=== PATIENT | female | born 1990 | race Caucasian/White ===

== ENCOUNTER 2018-08-06 04:32 | Emergency (ER) | payer OTHER ==
[~2018-08-06] VITALS: Ht 160 cm; Wt 90.7 kg
--- NOTE | 2018-08-06 04:54 | PHYS DOC ---
KHUSHBOO SWANSON MD 08/06/18 0454: Adult General Chief Complaint Chief Complaint epigastric pain HPI HPI 28 years old female presented to the emergency department with a one-week history of epigastric pain radiating to the back and right upper quadrant associated with nausea and vomiting no diarrhea no urgency frequency and hematuria she describes her pain as a sharp constant pain feels like pressure rated 7 out of 10 nothing makes it worse or better Review of Systems Review of Systems Constitutional: Denies fever or chills [] Eyes: Denies change in visual acuity, redness, or eye pain [] HENT: Denies nasal congestion or sore throat [] Respiratory: Denies cough or shortness of breath [] Cardiovascular: No additional information not addressed in HPI [] : Denies dysuria or hematuria [] Musculoskeletal: Denies back pain or joint pain [] Integument: Denies rash or skin lesions [] Neurologic: Denies headache, focal weakness or sensory changes [] Endocrine: Denies polyuria or polydipsia [] All other systems were reviewed and found to be within normal limits, except as documented in this note. Current Medications Current Medications Current Medications Medications (Trade) Dose Ordered Sig/Isabelle Start Time Stop Time Status Last Admin Dose Admin Multi-Ingredient Mouthwash/Gargle (Gi Cocktail) 20 ml 1X ONCE 08/06/18 05:00 08/06/18 05:46 DC 08/06/18 05:12 20 ML Pantoprazole Sodium (Protonix) 40 mg 1X ONCE 08/06/18 05:00 08/06/18 05:46 DC 08/06/18 05:13 40 MG Allergies Allergies Allergies Coded Allergies Type Severity Reaction Last Updated Verified No Known Drug Allergies 08/06/18 No Physical Exam Physical Exam Constitutional: Well developed, well nourished, no acute distress, non-toxic appearance. [] HENT: Normocephalic, atraumatic, bilateral external ears normal, oropharynx moist, no oral exudates, nose normal. [] Eyes: PERRLA, EOMI, conjunctiva normal, no discharge. [] Neck: Normal range of motion, no tenderness, supple, no stridor. [] Cardiovascular:Heart rate regular rhythm, no murmur [] Lungs & Thorax: Bilateral breath sounds clear to auscultation [] Abdomen: Bowel sounds normal, soft,tenderness in the right upper quadrant no masses, no pulsatile masses. [] Skin: Warm, dry, no erythema, no rash. [] Back: No tenderness, no CVA tenderness. [] Extremities: No tenderness, no cyanosis, no clubbing, ROM intact, no edema. [] Neurologic: Alert and oriented X 3, normal motor function, normal sensory function, no focal deficits noted. [] Psychologic: Affect normal, judgement normal, mood normal. [] Current Patient Data Vital Signs Vital Signs Date Time Temp Pulse Resp B/P (MAP) Pulse Ox O2 Delivery O2 Flow Rate FiO2 08/06/18 04:32 98.5 110 18 97 Room Air Lab Results Laboratory Tests Test 08/06/18 05:00 White Blood Count 9.8 x10^3/uL (4.0-11.0) Red Blood Count 4.60 x10^6/uL (3.50-5.40) Hemoglobin 13.6 g/dL (12.0-15.5) Hematocrit 39.8 % (36.0-47.0) Mean Corpuscular Volume 87 fL (79-100) Mean Corpuscular Hemoglobin 30 pg (25-35) Mean Corpuscular Hemoglobin Concent 34 g/dL (31-37) Red Cell Distribution Width 14.1 % (11.5-14.5) Platelet Count 326 x10^3/uL (140-400) Neutrophils (%) (Auto) 85 % (31-73) H Lymphocytes (%) (Auto) 8 % (24-48) L Monocytes (%) (Auto) 6 % (0-9) Eosinophils (%) (Auto) 1 % (0-3) Basophils (%) (Auto) 0 % (0-3) Neutrophils # (Auto) 8.3 x10^3uL (1.8-7.7) H Lymphocytes # (Auto) 0.8 x10^3/uL (1.0-4.8) L Monocytes # (Auto) 0.6 x10^3/uL (0.0-1.1) Eosinophils # (Auto) 0.1 x10^3/uL (0.0-0.7) Basophils # (Auto) 0.0 x10^3/uL (0.0-0.2) Sodium Level 141 mmol/L (136-145) Potassium Level 4.3 mmol/L (3.5-5.1) Chloride Level 104 mmol/L (98-107) Carbon Dioxide Level 25 mmol/L (21-32) Anion Gap 12 (6-14) Blood Urea Nitrogen 14 mg/dL (7-20) Creatinine 0.8 mg/dL (0.6-1.0) Estimated GFR (Cockcroft-Gault) 86.0 BUN/Creatinine Ratio 18 (6-20) Glucose Level 111 mg/dL (70-99) H Calcium Level 8.9 mg/dL (8.5-10.1) Total Bilirubin 0.9 mg/dL (0.2-1.0) Aspartate Amino Transferase (AST) 110 U/L (15-37) H Alanine Aminotransferase (ALT) 84 U/L (14-59) H Alkaline Phosphatase 102 U/L (46-116) Troponin I Quantitative < 0.017 ng/mL (0-0.055) Total Protein 6.7 g/dL (6.4-8.2) Albumin 3.7 g/dL (3.4-5.0) Albumin/Globulin Ratio 1.2 (1.0-1.7) Lipase 211 U/L (73-393) EKG EKG Normal sinus rhythm[] Radiology/Procedures Radiology/Procedures [] Course & Med Decision Making Course & Med Decision Making Pertinent Labs and Imaging studies reviewed. (See chart for details) [] Final Impression Final Impression [] Problems: (1) Epigastric abdominal pain Dragon Disclaimer Dragon Disclaimer This electronic medical record was generated, in whole or in part, using a voice recognition dictation system. ASHLEY YUN MD 08/06/18 0639: Adult General Radiology/Procedures Radiology/Procedures [address] [address] IMAGING REPORT Signed PATIENT: YEHUDA BETH ACCOUNT: [id number] : 1990 LOCATION: ER AGE: 28 SEX: F EXAM STATUS: REG ER ORD. PHYSICIAN: KHUSHBOO SWANSON MD REASON: right upper q pain PROCEDURE: ABDOMEN COMPLETE Ultrasound of the abdomen 08/06/2018 CLINICAL HISTORY: Right upper quadrant abdominal pain. TECHNIQUE: A real-time ultrasound examination of the abdomen was performed. Multiple images were obtained. FINDINGS: The gallbladder is well-distended. Echogenic gallstones are seen within the dependent portions of the gallbladder. The gallbladder wall thickness within normal limits. No pericholecystic fluid is seen. The common bile duct measures 5 mm in diameter which is within normal limits. The liver is normal in size. It measures 16.3 cm in length. No focal abnormality of the liver is seen. The spleen, kidneys and visualized portions of pancreas are within normal limits. The abdominal aorta tapers normally. The inferior vena cava is within normal limits. No free fluid is seen. IMPRESSION: Cholelithiasis. Electronically signed by: Blade Arana MD (08/06/2018 8:15 AM) [facility] DICTATED AND SIGNED BY: BLADE ARANA MD DATE: 08/06/18811 CC: KHUSHBOO SWANSON MD; ASHLEY YUN MD; PCP,NO ~ Course & Med Decision Making Course & Med Decision Making Patient care transferred to nm for following up the results of gallbladder ultrasound that showed cholelithiasis. Patient did not want to have pain medication during evaluation. Patient decided to follow-up with on-call surgeon as outpatient for possible cholecystectomy. Prescription for pain medication and antacid was given. Departure Time of Disposition: 09:15 Disposition: HOME, SELF-CARE Condition: IMPROVED Patient Instructions: Cholecystitis Referrals: INDIO WAGONER MD Additional Instructions: Drink plenty of liquids Follow-up with your primary care physician in 3-5 days Return to ER if not getting better Do not eat greasy foods Call on-call surgeon today to make an appointment for gallbladder surgery Prescriptions [place], ibuprofen, Zantac KHUSHBOO SWANSON MD Aug 06, 2018 04:54 ASHLEY YUN MD Aug 06, 2018 06:39
[2018-08-06] MEDS: LIDO:MAALOX 1:1 20 ML SINGLE DOSE. PO ONE (05:12)
[2018-08-06] MEDS: PANTOPRAZOLE 40 MG TABLET. PO ONE (05:13)
[2018-08-06 05:17] LABS: BASO % 0 % (0-3); EOS # 0.1 x10^3/uL (0.0-0.7); EOS % 1 % (0-3); HEMATOCRIT 39.8 % (36.0-47.0); HEMOGLOBIN 13.6 g/dL (12.0-15.5); LYMPH # 0.8 x10^3/uL (1.0-4.8); LYMPH % 8 % (24-48); MEAN CORPUSCULAR HEMOGLOBIN 30 pg (25-35); MEAN CORPUSCULAR HGB CONC 34 g/dL (31-37); MEAN CORPUSCULAR VOLUME 87 fL (79-100); MONO # 0.6 x10^3/uL (0.0-1.1); MONO % 6 % (0-9); NEUT # 8.3 x10^3uL (1.8-7.7); NEUT % 85 % (31-73); PLATELET COUNT 326 x10^3/uL (140-400); RED CELL DISTRIBUTION WIDTH 14.1 % (11.5-14.5); WHITE BLOOD COUNT 9.8 x10^3/uL (4.0-11.0)
[2018-08-06 05:29] LABS: ALBUMIN 3.7 g/dL (3.4-5.0); ALBUMIN/GLOBULIN RATIO 1.2 (1.0-1.7); CALCIUM 8.9 mg/dL (8.5-10.1); CREATININE 0.8 mg/dL (0.6-1.0); POTASSIUM 4.3 mmol/L (3.5-5.1); TOTAL BILIRUBIN 0.9 mg/dL (0.2-1.0); TOTAL PROTEIN 6.7 g/dL (6.4-8.2)
--- NOTE | 2018-08-06 08:19 | RAD ---
Ultrasound of the abdomen 08/06/2018 CLINICAL HISTORY: Right upper quadrant abdominal pain. TECHNIQUE: A real-time ultrasound examination of the abdomen was performed. Multiple images were obtained. FINDINGS: The gallbladder is well-distended. Echogenic gallstones are seen within the dependent portions of the gallbladder. The gallbladder wall thickness within normal limits. No pericholecystic fluid is seen. The common bile duct measures 5 mm in diameter which is within normal limits. The liver is normal in size. It measures 16.3 cm in length. No focal abnormality of the liver is seen. The spleen, kidneys and visualized portions of pancreas are within normal limits. The abdominal aorta tapers normally. The inferior vena cava is within normal limits. No free fluid is seen. IMPRESSION: Cholelithiasis. Electronically signed by: Blade Arana MD (08/06/2018 8:15 AM) [id number]
[2018-08-06 09:01] VITALS: BP 116/68
[2018-08-06] MEDS ORDERED: RANI150T21 PO (09:22)
[2018-08-06] MEDS ORDERED: HYDR-971 PO (09:22)
[2018-08-06] MEDS ORDERED: IBUP800T19 PO (09:22)
--- NOTE | 2018-08-06 19:38 | EKG ---
[address] [address] Test Date: 2018-08-06 Test Time: 04:48:33 Pat Name: YEHUDA BETH Department: Room: Gender: F Section Cutter: : 1990 Requested By: KHUSHBOO SWANSON Order Number: [id number] Reading MD: Measurements Intervals [place] Rate: 84 P: 39 WI: 152 QRS: 14 QRSD: 74 T: 16 QT: 348 QTc: 414 Interpretive Statements SINUS RHYTHM NORMAL ECG RI6.01 Unconfirmed report No previous ECG available for comparison
== END 2018-08-06 09:30 | disposition home or self-care (01) ==
LOC: ER 04:32
DX: K80.20 Calculus of gallbladder without cholecystitis without obstruction (principal)
CPT/HCPCS: 36415; 76700; 80053; 83690; 84484; 85025; 93005; 99285-25

== ENCOUNTER 2021-06-13 08:21 | Emergency (ER) | payer BC, OTHER ==
[~2021-06-13] VITALS: Ht 160 cm; Wt 102.4 kg
[~2021-06-13 08:21] MED LIST: HYDR-3165 PO; IBUP800T19 PO; RANI-376 PO
[2021-06-13] MEDS ORDERED: IOHEXOL 350 MG/ML 100 ML VIAL. IV ONE (09:00)
--- NOTE | 2021-06-13 09:05 | PHYS DOC ---
Past History Past Medical History: No Pertinent History Past Surgical History: Cholecystectomy, Tonsillectomy Smoking: Non-smoker Alcohol Use: None Drug Use: None Adult General Chief Complaint Chief Complaint: RIB PAIN HPI HPI Patient is a 31-year-old female presenting for left-sided chest pain. Reports being overweight otherwise healthy and on no medications daily. Had recent central umbilical hernia 05/29/2021. She is fully vaccinated with Covid, had generalized malaise and some abdominal cramping and fatigue several days after her surgery and was evaluated fully by her surgeon and subsequent ER at [facility], states her work-up that included blood and CT abdomen pelvis was grossly unremarkable and discharged home. Nonetheless, patient reports 4 days ago suffering increased left lower chest wall pain that she feels is deep and "feels like it is mild". States inspiration and expiration hurt. Pain radiates to left shoulder/neck area. Nothing known makes better. She reports she spoke with an on-call physician yesterday evening and there was concern for pulmonary embolism versus diaphragm injury from surgery and so, it was advised she seek care at our ER for further evaluation Review of Systems Review of Systems Fourteen body systems of review of systems have been reviewed. See HPI for pertinent positives and negative responses, other beard all other systems are negative, non-pertinent or non-contributory Current Medications Current Medications Current Medications Medications (Trade) Dose Ordered Sig/Isabelle Start Time Stop Time Status Last Admin Dose Admin Iohexol (Omnipaque 350 Mg/ml) 100 ml 1X ONCE 06/13/21 09:00 06/13/21 09:01 DC Allergies Allergies Allergies Coded Allergies Type Severity Reaction Last Updated Verified Penicillins Allergy Unknown 06/13/21 Yes Physical Exam Physical Exam Constitutional: Well developed, well nourished, no acute distress, non-toxic appearance. HENT: Normocephalic, atraumatic, bilateral external ears normal, oropharynx moist, no oral exudates, nose normal. Eyes: PERRLA, EOMI, conjunctiva normal, no discharge. Neck: Normal range of motion, no tenderness, supple, no stridor. Cardiovascular: Heart rate regular, sinus rhythm, no murmurs rubs or gallops Lungs & Thorax: No respiratory distress, no increased work of breathing, patient does grimace with deep inspiration and pain otherwise clear to auscultation bilaterally Abdomen: Bowel sounds normal, soft, no tenderness, no masses, no pulsatile masses. Nonsurgical abdomen, no peritoneal signs Skin: Warm, dry, no erythema, no rash. Back: No tenderness, no CVA tenderness. Extremities: No tenderness, no cyanosis, no clubbing, ROM intact, no edema. Neurologic: Alert and oriented X 3, grossly normal motor & sensory function, no focal deficits noted. Psychologic: Affect normal, judgement normal, mood normal. Current Patient Data Vital Signs Vital Signs Date Time Temp Pulse Resp B/P (MAP) Pulse Ox O2 Delivery O2 Flow Rate FiO2 06/13/21 08:34 98.0 95 20 134/77 98 Room Air EKG EKG EKG ordered and interpreted by myself at 0903 hrs. as sinus rhythm at 90 bpm, unremarkable intervals, no axis deviation, no obvious ischemic findings, no STEMI Radiology/Procedures Radiology/Procedures [] Heart Score C/O Chest Pain: No HEART Score for Chest Pain: HEART Score for Chest Pain Response (Comments) Value History Slighlty/Non-Suspicious 0 ECG Normal 0 Age < 45 0 Risk Factors 1 or 2 Risk Factors 1 Troponin < Normal Limit 0 Total 1 Risk Factors: Risk Factors: DM, Current or recent (<one month) smoker, HTN, HLP, family history of CAD, obesity. Risk Scores: Risk Factors: DM, Current or recent (<one month) smoker, HTN, HLP, family history of CAD, obesity. Course & Med Decision Making Course & Med Decision Making Pertinent Labs and Imaging studies reviewed. (See chart for details) [] Dragon Disclaimer Dragon Disclaimer This electronic medical record was generated, in whole or in part, using a voice recognition dictation system. Departure Departure: Impression: Primary Impression: Chest pain, unspecified Disposition: HOME / SELF CARE / HOMELESS Condition: STABLE Referrals: MINI VELASQUEZ MD (PCP) Additional Instructions: You were seen for chest pain. Your workup did not show any acute abnormalities today, but does not indicate that you do not have underlying cardiovascular disease. You do need to follow up with your primary doctor and recent surgeon further evaluation and treatment. As disclosed, there is no apparent emergent and/or surgical issues found based on your ER visit today. You should return to the ED if you develop worsening chest pain, shortness of breath, fever, abnormal sweating, leg swelling, or any other new or concerning symptoms. DEX HARE 17, 2021 09:05
[2021-06-13 09:15] LABS: BASO % 1 % (0-3); EOS # 0.2 x10^3/uL (0.0-0.7); EOS % 2 % (0-3); HEMATOCRIT 40.5 % (36.0-47.0); HEMOGLOBIN 13.7 g/dL (12.0-15.5); LYMPH # 1.4 x10^3/uL (1.0-4.8); LYMPH % 17 % (24-48); MEAN CORPUSCULAR HEMOGLOBIN 30 pg (25-35); MEAN CORPUSCULAR HGB CONC 34 g/dL (31-37); MEAN CORPUSCULAR VOLUME 87 fL (79-100); MONO # 0.4 x10^3/uL (0.0-1.1); MONO % 5 % (0-9); NEUT # 6.2 x10^3uL (1.8-7.7); NEUT % 76 % (31-73); PLATELET COUNT 298 x10^3/uL (140-400); RED BLOOD COUNT 4.64 x10^6/uL (3.50-5.40); RED CELL DISTRIBUTION WIDTH 13.6 % (11.5-14.5); WHITE BLOOD COUNT 8.1 x10^3/uL (4.0-11.0)
[2021-06-13 09:26] LABS: CALCIUM 8.4 mg/dL (8.5-10.1); CREATININE 0.7 mg/dL (0.6-1.0); GFR 98.3; POTASSIUM 4.3 mmol/L (3.5-5.1)
--- NOTE | 2021-06-13 09:57 | RAD ---
EXAMINATION: CTA CHEST CLINICAL HISTORY: CHEST PAIN WITH RESPIRATION, LUQ PAIN RADIATING TO LT SHOULDER, RECENT ABD SURGERY Technique: Spiral CT acquisition of the chest from the thoracic inlet to the upper abdomen following IV contrast with coronal and sagittal reformatted images also provided for review. 3D maximum intensi ty projection images also performed. CT Dose Reduction Employed: One or more of the following individualized dose reduction techniques wer e utilized for this examination: 1. Automated exposure control 2. Adjustment of the mA and/or kV ac cording to patient size 3. Use of iterative reconstruction technique. Comparison: None FINDINGS: Pulmonary Vasculature: Tiny focus of hypoattenuation at the origin of the anterior basal segmental pu lmonary artery of the right lower lobe which may be related to partial voluming of the arterial roberson at the branch point but a tiny thrombus is not excluded (series 8 image 53). There is otherwise no e vidence of main, lobar, or segmental pulmonary arterial thrombus. Lung Parenchyma, Pleura, and Airways: Poor pulmonary expansion with scattered subsegmental atelectasi s bilaterally. No focal consolidation. No pleural effusion. Central airways patent. Lower Neck, Lymph Nodes, and Mediastinum: Visualized thyroid gland within normal limits. No mediastin al, hilar, or axillary lymphadenopathy. Heart, Pericardium, and Thoracic Vessels: Cardiac chambers normal in size. No pericardial effusion. T horacic aorta within normal limits. No coronary artery atherosclerotic calcifications are noted, alth ough the study is not optimized for coronary assessment. Bones and Soft Tissues: No evidence of acute osseous abnormality. Upper Abdomen: Biliary ductal prominence status post cholecystectomy. IMPRESSION: No definitive evidence of main, lobar, or segmental pulmonary embolism. A tiny embolism at the origin of the anterior basal segmental pulmonary artery of the right lower lobe is not entirely excluded bu t partial voluming artifact is favored. Pulmonary hypoexpansion with bilateral subsegmental atelectasis. Electronically signed by: Waqar Donald DO (06/13/2021 9:55 AM) [id number]
[2021-06-13 10:31] VITALS: BP 133/80
--- NOTE | 2021-06-13 10:56 | EKG ---
[address] [address] Test Date: 2021-06-13 Test Time: 08:56:34 Pat Name: YEHUDA BETH Department: Room: Gender: F Shotblaster: PETROS : 1990 Requested By: DEX HAER Order Number: [id number] Reading MD: Measurements Intervals [place] Rate: 90 P: 33 [place]: 140 QRS: 20 QRSD: 70 T: 10 QT: 354 QTc: 437 Interpretive Statements SINUS RHYTHM NORMAL ECG RI6.02 No previous ECG available for comparison
== END 2021-06-13 11:21 | disposition home or self-care (01) ==
LOC: ER 08:21
DX: R07.89 Other chest pain (principal); R10.9 Unspecified abdominal pain; R53.81 Other malaise; Z90.49 Acquired absence of other specified parts of digestive tract; Z88.0 Allergy status to penicillin
CPT/HCPCS: 36415; 71275; 80048; 81025; 84484; 85025; 93005; 99285; Q9967